=== PATIENT | female | born 1970 | race Native Hawaiian/Other Pacific Islander ===

== ENCOUNTER 2016-08-03 16:09 | Emergency (ER) | payer MEDICAID ==
[~2016-08-03] VITALS: Ht 152.4 cm; Wt 74.0 kg
[~2016-08-03 16:09] MED LIST: DORZ2SOL15 EACH EYE; REST0.05 EACH EYE
[2016-08-03 16:11] VITALS: BP 145/79; PULSE 74; RESP 20; TEMP 98.4; O2SAT 100
[2016-08-03] MEDS ORDERED: IBUP-232 PO (16:35)
[2016-08-03] MEDS ORDERED: PROPARACAINE HCL 0.5% OPHT SOLN 15 ML BTL EACH EYE ONE (17:15)
[2016-08-03] MEDS ORDERED: SODIUM CHLOR 0.9% 1000 ML INJ 1,000 ML IV ONE (17:15)
[2016-08-03] MEDS ORDERED: FLUORESCEIN SOD 1 MG STRIP EACH EYE ONE (17:15)
[2016-08-03] MEDS ORDERED: diphenhydrAMINE HCL 50 MG/ML VIAL IV PUSH ONE (17:15)
[2016-08-03] MEDS ORDERED: PROCHLORPERAZINE INJ 10 MG/2 ML VIAL IV PUSH ONE (17:15)
[2016-08-03 17:48] LABS: AUTOMATED NEUTROPHIL # 3.1 TH/MM3 (1.8-7.7); BASOPHIL % 0.6 % (0.0-2.0); EOSINOPHIL # 0.1 TH/MM3 (0-0.4); HEMATOCRIT 34.3 % (35.0-46.0); LYMPH % 50.1 % (9.0-44.0); LYMPHOCYTE # 3.7 TH/MM3 (1.0-4.8); MEAN CELL VOLUME 69.7 FL (80.0-100.0); MEAN CORPUSCULAR HEMOGLOBIN 22.4 PG (27.0-34.0); MEAN CORPUSCULAR HGB CONC 32.1 % (32.0-36.0); MONO % 6.5 % (0.0-8.0); NEUT % 41.8 % (16.0-70.0); PLATELET COUNT 378 TH/MM3 (150-450); RED BLOOD COUNT 4.92 MIL/MM3 (4.00-5.30); RED CELL DISTRIBUTION WIDTH 20.2 % (11.6-17.2); WHITE BLOOD COUNT 7.5 TH/MM3 (4.0-11.0)
[2016-08-03 17:53] LABS: HEMO FLAGS AUTO DIFF
[2016-08-03 18:10] LABS: BICARBONATE 25.5 MEQ/L (21.0-32.0); POTASSIUM 3.9 MEQ/L (3.5-5.1)
[2016-08-03 18:13] LABS: PLATELET ESTIMATE SMEAR NORMAL (NORMAL); PLATELET MORPHOLOGY NORMAL (NORMAL); SCAN/DIFF AUTO DIFF CONFIRMED
[2016-08-03] MEDS ORDERED: MANNITOL 12.5 GM/50 ML VIAL IV ONE (19:00)
[2016-08-03] MEDS ORDERED: METHAZOLAMIDE 50 MG PO ONE (19:00)
--- NOTE | 2016-08-03 19:08 | RADRPT ---
EXAM DATE/TIME: 08/03/2016 18:31 [place] COMPARISON: No previous studies available for comparison. INDICATIONS : Cephalgia. RADIATION DOSE: 40.30 CTDIvol (mGy) MEDICAL HISTORY : None SURGICAL HISTORY : None. ENCOUNTER: Initial ACUITY: 1 day PAIN SCALE: 5/10 LOCATION: cranial TECHNIQUE: Multiple contiguous axial images were obtained of the head. Using automated exposure control and adj ustment of the mA and/or kV according to patient size, radiation dose was kept as low as reasonably a chievable to obtain optimal diagnostic quality images. FINDINGS: CEREBRUM: The ventricles are normal for age. No evidence of midline shift, mass lesion, hemorrhage or acute in farction. No extra-axial fluid collections are seen. POSTERIOR FOSSA: The cerebellum and brainstem are intact. The 4th ventricle is midline. The cerebellopontine angle i s unremarkable. EXTRACRANIAL: The visualized portion of the orbits is intact. SKULL: The calvaria is intact. No evidence of skull fracture. CONCLUSION: Normal examination for a patient of this age. Jose Mariscal MD on August 03, 2016 at 19:04 Board Certified Radiologist. This report was verified electronically.
[2016-08-03] MEDS ORDERED: METH50TA2 PO (19:29)
--- NOTE | 2016-08-03 19:29 | PD ---
HPI Chief Complaint: Eye Problems/Injury Time Seen by Provider: 16:53 Travel History International Travel<30 days: No Contact w/Intl Traveler<30days: No Traveled to known affect area: No History of Present Illness HPI Patient is a 45-year-old female with history of glaucoma, who comes in complaining of headache with blurry vision and pain to her left eye. She says she was told she had glaucoma 2 years ago and had been using timolol drops until a month ago. She says a month ago her superannuation clerk told her to stop the drops because she does not have glaucoma. She says for the past 10 days she has had blurry vision and burning in that eye as well as a headache. She started taking the timolol drops again because she was concerned her glaucoma was acting up. She denies any head injury. She denies any neck pain. She denies fever or chills. PFSH Past Medical History Medical other: Yes (GLAUCOMA) Migraines: Yes Tetanus Vaccination: < 5 Years Influenza Vaccination: Yes ?: Not LMP: 07/19/16 Past Surgical History Abdominal Surgery: Yes (COLON) Section: Yes Tonsillectomy: Yes Social History Alcohol Use: No Tobacco Use: No Substance Use: No Allergies-Medications (Allergen,Severity, Reaction): Coded Allergies: No Known Allergies (Unverified , 08/03/16) Reported Meds & Prescriptions Reported Meds & Active Scripts Active Methazolamide 50 Mg Tab 50 Mg PO DAILY Take one pill before bedtime and one pill in the morning Reported Ibuprofen 600 Mg Tab 600 Mg PO Q8HR PRN Dorzolamide-Timolol Opth Drops 22.3-6.8 Mg/Ml Soln 1 Drop EACH EYE BID Restasis Opth Drops (Cyclosporine Opth Drops) 0.05% Emul 1 Drop EACH EYE BID Review of Systems Except as stated in HPI: all other systems reviewed are Neg General / Constitutional: No: Fever, Chills Eyes: Positive: Blurred Vision HENT: Positive: Headaches, Lightheadedness Cardiovascular: No: Chest Pain or Discomfort Respiratory: No: Shortness of Breath Gastrointestinal: No: Nausea, Vomiting Musculoskeletal: No: Myalgias, Weakness Skin: No Rash, No Change in Pigmentation Neurologic: Positive: Dizziness, No: Weakness Physical Exam Narrative GENERAL: Awake and alert in no acute distress. SKIN: Focused skin assessment warm/dry. HEAD: Atraumatic. Normocephalic. EYES: Pupils equal and round and reactive. No scleral icterus. No injection or drainage. Extraocular movements intact. ENT: Mucous membranes pink and moist. NECK: Trachea midline. No JVD. CARDIOVASCULAR: Regular rate and rhythm. No murmur appreciated. RESPIRATORY: No accessory muscle use. Clear to auscultation. Breath sounds equal bilaterally. MUSCULOSKELETAL: No obvious deformities. No clubbing. No cyanosis. No edema. NEUROLOGICAL: Awake and alert. No obvious cranial nerve deficits. Motor grossly within normal limits. Normal speech. PSYCHIATRIC: Appropriate mood and affect; insight and judgment normal. Data Data Last Documented VS Vital Signs Date Time Temp Pulse Resp B/P Pulse Ox O2 Delivery O2 Flow Rate FiO2 08/03/16 20:28 78 16 102/78 98 Room Air 08/03/16 16:11 98.4 Orders Complete Blood Count With Diff (08/03/16 17:08) Basic Metabolic Panel (Bmp) (08/03/16 17:08) Iv Access Insert/Monitor (08/03/16 17:08) Ct Brain W/O Iv Contrast(Rout) (08/03/16 ) Ed Urine Pregnancytest Poc (08/03/16 17:08) Fluorescein Strip (Lfaue-T-Vwsgnv A.T.) (08/03/16 17:15) Proparacaine 0.5% Opth Soln (Alcaine 0.5 (08/03/16 17:15) Sodium Chlor 0.9% 1000 Ml Inj (Ns 1000 M (08/03/16 17:15) Prochlorperazine Inj (Compazine Inj) (08/03/16 17:15) Diphenhydramine Inj (Benadryl Inj) (08/03/16 17:15) Methazolamide (Neptazane) (08/03/16 19:00) Mannitol Inj (Osmitrol Inj) (08/03/16 20:15) Labs Laboratory Tests Test 08/03/16 17:00 White Blood Count 7.5 TH/MM3 Red Blood Count 4.92 MIL/MM3 Hemoglobin 11.0 GM/DL Hematocrit 34.3 % Mean Corpuscular Volume 69.7 FL Mean Corpuscular Hemoglobin 22.4 PG Mean Corpuscular Hemoglobin 32.1 % Concent Red Cell Distribution Width 20.2 % Platelet Count 378 TH/MM3 Mean Platelet Volume 7.5 FL Neutrophils (%) (Auto) 41.8 % Lymphocytes (%) (Auto) 50.1 % Monocytes (%) (Auto) 6.5 % Eosinophils (%) (Auto) 1.0 % Basophils (%) (Auto) 0.6 % Neutrophils # (Auto) 3.1 TH/MM3 Lymphocytes # (Auto) 3.7 TH/MM3 Monocytes # (Auto) 0.5 TH/MM3 Eosinophils # (Auto) 0.1 TH/MM3 Basophils # (Auto) 0.0 TH/MM3 CBC Comment AUTO DIFF Differential Comment AUTO DIFF CONFIRMED Platelet Estimate NORMAL Platelet Morphology Comment NORMAL Sodium Level 139 MEQ/L Potassium Level 3.9 MEQ/L Chloride Level 104 MEQ/L Carbon Dioxide Level 25.5 MEQ/L Anion Gap 10 MEQ/L Blood Urea Nitrogen 11 MG/DL Creatinine 0.82 MG/DL Estimat Glomerular Filtration 76 ML/MIN Rate Random Glucose 83 MG/DL Calcium Level 8.7 MG/DL MDM Medical Decision Making Medical Screen Exam Complete: Yes Emergency Medical Condition: Yes Medical Record Reviewed: Yes Differential Diagnosis Migraine versus corneal abrasion versus glaucoma Narrative Course Patient is a 45-year-old female with a history of glaucoma who comes in complaining of blurred vision, pain in her eyes and a headache. She says it is been going on for the past 10 days. Exam shows pupils equal and reactive, left eye visual acuity is 20/30, right eye is 20/25. Kyle-Pen used to test the pressure in both eyes, it reads 90 in her left eye, 89 on repeat. Right eye has a pressure 14. I spoke with Dr. Faust of ophthalmology who suggests 1 g/kg of mannitol and Neptazane 50 mg, once now, once at bedtime and once in the morning. Patient given these medications. Given prescription for Neptazane. Advised to follow- up with Dr. Faust tomorrow morning. Patient understands the importance of follow -up. Advised to return to the ED as needed for any worsening symptoms. Labs and CT head are all within normal limits. Diagnosis Primary Impression: Absolute glaucoma of left eye Patient Instructions: General Instructions, Glaucoma (ED) Additional Instructions: Take one dose of Naptazine tonight at bedtime and one tomorrow morning. Follow up tomorrow morning with Dr. Recio [address] [place] [address] [phone]. Return to the ED as needed for any worsening symptoms. Scripts Methazolamide 50 Mg Tab50 Mg PO DAILY #2 TAB Ref 0 Take one pill before bedtime and one pill in the morning Prov:Carol Grajeda MD 08/03/16 Disposition: 01 DISCHARGE HOME Condition: Stable Carol Grajeda MD August 03, 2016 19:29
[2016-08-03] MEDS ORDERED: MANNITOL IV ONE (20:15)
[2016-08-03 20:28] VITALS: BP 102/78; PULSE 78; RESP 16; O2SAT 98
== END 2016-08-03 22:19 | disposition home or self-care (01) ==
LOC: NEPC 16:09
DX: H44.512 Absolute glaucoma, left eye (principal)
CPT/HCPCS: 70450; 80048; 84703; 85025; 96361; 96374; 96375; 99284; J0780; J1200; J7030

== ENCOUNTER 2017-05-07 11:58 | Emergency (ER) | payer MEDICAID ==
[~2017-05-07] VITALS: Ht 157.5 cm; Wt 75.0 kg
[~2017-05-07 11:58] MED LIST changes: +IBUP-232 PO; +METH50TA2 PO
[2017-05-07 12:02] VITALS: BP 147/86; PULSE 74; RESP 14; TEMP 98.9; O2SAT 100
[2017-05-07 12:42] VITALS: O2SAT 100
[2017-05-07] MEDS ORDERED: ATOM40 PO (12:48)
[2017-05-07] MEDS ORDERED: FERR325T72 PO (12:48)
[2017-05-07] MEDS ORDERED: ALPR0.25 PO (12:48)
[2017-05-07] MEDS ORDERED: SUMA100T2 PO (12:48)
[2017-05-07] MEDS ORDERED: ATOR20TA15 PO (12:48)
[2017-05-07] MEDS ORDERED: BUTATAB6 PO (12:48)
[2017-05-07] MEDS ORDERED: TOPI200T7 PO (12:48)
[2017-05-07] MEDS ORDERED: CITA20TA4 PO (12:48)
[2017-05-07 12:58] LABS: HEMATOCRIT 39.6 % (35.0-46.0); HEMOGLOBIN 13.1 GM/DL (11.6-15.3); MEAN CELL VOLUME 77.7 FL (80.0-100.0); MEAN CORPUSCULAR HEMOGLOBIN 25.7 PG (27.0-34.0); MEAN CORPUSCULAR HGB CONC 33.1 % (32.0-36.0); RED CELL DISTRIBUTION WIDTH 17.2 % (11.6-17.2); WHITE BLOOD COUNT 5.7 TH/MM3 (4.0-11.0)
[2017-05-07 12:59] LABS: AUTOMATED NEUTROPHIL # 3.2 TH/MM3 (1.8-7.7); BASOPHIL % 0.3 % (0.0-2.0); EOSINOPHIL % 0.3 % (0.0-4.0); LYMPH % 37.3 % (9.0-44.0); LYMPHOCYTE # 2.1 TH/MM3 (1.0-4.8); MEAN PLATELET VOLUME 7.5 FL (7.0-11.0); MONO % 5.5 % (0.0-8.0); MONOCYTE # 0.3 TH/MM3 (0-0.9); NEUT % 56.6 % (16.0-70.0); PLATELET COUNT 283 TH/MM3 (150-450)
[2017-05-07] MEDS ORDERED: PANTOPRAZOLE SODIUM 40 MG VIAL IV PUSH ONE (13:00)
[2017-05-07] MEDS ORDERED: SODIUM CHLOR 0.9% 1000 ML INJ 1,000 ML IV SCH (13:00)
[2017-05-07] MEDS ORDERED: ONDANSETRON HCL 4 MG/2 ML VIAL IV PUSH ONE (13:00)
[2017-05-07 13:08] LABS: BILIRUBIN, URINE NEG (NEG); BLOOD, URINE MOD (NEG); GLUCOSE,URINE NEG (NEG); KETONE, URINE NEG (NEG); MUCUS URINE FEW /lpf (OCC); NITRITE,URINE NEG (NEG); PH, URINE 6.5 (5.0-8.5); SQUAMOUS EPITHELIAL CELL URINE 1 /hpf (0-5); URINE COLOR YELLOW (YELLW/STRAW); URINE LEUKOCYTE ESTERASE NEG (NEG)
[2017-05-07 13:17] LABS: ALBUMIN 4.3 GM/DL (3.4-5.0); ALT (GPT) 27 U/L (10-53); AST (GOT) 17 U/L (15-37); BICARBONATE 24.6 MEQ/L (21.0-32.0); BLOOD UREA NITROGEN 6 MG/DL (7-18); CALCIUM 8.8 MG/DL (8.5-10.1); CHLORIDE 108 MEQ/L (98-107); GLUCOSE,RANDOM 88 MG/DL (74-106); SODIUM (NA) 138 MEQ/L (136-145)
[2017-05-07 13:20] LABS: ALKALINE PHOSPHATASE 67 U/L (45-117); GLOMERULAR FILTRATION RATE 108 ML/MIN (>89); TOTAL BILIRUBIN ADULT 0.6 MG/DL (0.2-1.0); TOTAL PROTEIN 8.1 GM/DL (6.4-8.2)
--- NOTE | 2017-05-07 13:28 | PD ---
HPI Chief Complaint: GI Complaint Time Seen by Provider: 13:07 Travel History International Travel<30 days: No Contact w/Intl Traveler<30days: No Traveled to known affect area: No History of Present Illness HPI This is a 46-year-old female who came here for abdominal pain nausea and vomiting that started 2 days ago when she had antibiotics and pain killers. She had 1 of her tooth removed 2 days ago and she was started on antibiotics and painkillers that she does not know the name of it. She states that her symptoms worse when she takes the antibiotics, she gets nausea and she vomits, vomitus is nonbilious nonbloody, she denies fever chills or night sweats, she complain of burning sensation every time she takes the pain killer. She denies UTI-like symptoms denies any vaginal discharge no cough or chest pain no shortness of breath. She is not using alcohol or any drugs. I was able to locate the medication that she was taking, she was on amoxicillin 500 as well as [place] for pain. Patient has improved with the IV Protonix here in the ER and her symptoms are consistent with gastritis. [facility] Past Medical History Migraines: Yes ?: Unknown LMP: 04/18/17 Past Surgical History Abdominal Surgery: Yes (COLON) Section: Yes Tonsillectomy: Yes Social History Alcohol Use: No Tobacco Use: No Substance Use: No Allergies-Medications (Allergen,Severity, Reaction): Coded Allergies: No Known Allergies (Unverified , 08/03/16) Reported Meds & Prescriptions Reported Meds & Active Scripts Active Zofran (Ondansetron HCl) 4 Mg Tab 4 Mg PO Q12HR PRN 5 Days EC-Naprosyn (Naproxen) 500 Mg Tabdr 500 Mg PO BID Zithromax Z-Yunier (Azithromycin) 250 Mg Dspk 250 Mg PO DIRECTED 500 MG (2 tabs) day 1, then 1 tab days 2-5. Protonix (Pantoprazole Sodium) 40 Mg Tab 40 Mg PO DAILY Reported Topiramate 200 Mg Tab 100 Mg PO HS Sumatriptan (Sumatriptan Succinate) 100 Mg Tab 100 Mg PO ONCE PRN If a satisfactory response has not been obtained at 2 hours, a second dose may be administered Ferrous Gluconate 324 Mg (37.5 Mg Iron) Tab 325 Mg PO DAILY Citalopram (Citalopram Hydrobromide) 20 Mg Tab 20 Mg PO DAILY Iqcpabghoj-Sxpmzwoxacmcr-Jpobqmvb 50-325-40 Mg Tab 1 Tab PO DAILY PRN Do not exceed 6 tablets/day. Atorvastatin (Atorvastatin Calcium) 20 Mg Tab 20 Mg PO HS Strattera (Atomoxetine HCl) 40 Mg Cap 40 Mg PO DAILY Alprazolam 0.25 Mg Tab 0.25 Mg PO DAILY PRN Review of Systems General / Constitutional: No: Fever, Weight Loss HENT: Positive: Headaches Cardiovascular: Positive: Palpitations Gastrointestinal: Positive: Nausea, Vomiting, Abdominal Pain Physical Exam Narrative GENERAL: No acute distress. Mouth: 1st molar removed, no signs of infection or swelling. SKIN: Focused skin assessment warm/dry. HEAD: Atraumatic. Normocephalic. EYES: Pupils equal and round. No scleral icterus. No injection or drainage. ENT: No nasal bleeding or discharge. Mucous membranes pink and moist. NECK: Trachea midline. CARDIOVASCULAR: Regular rate and rhythm. No murmur appreciated. RESPIRATORY: No accessory muscle use. Clear to auscultation. Breath sounds equal bilaterally. GASTROINTESTINAL: Mild epigastric pain to palpation, abdomen soft, nondistended. Hepatic and splenic margins not palpable. MUSCULOSKELETAL: No obvious deformities. No clubbing. No cyanosis. No edema. NEUROLOGICAL: Awake and alert. No obvious cranial nerve deficits. Motor grossly within normal limits. Normal speech. PSYCHIATRIC: Appropriate mood and affect; insight and judgment normal. Data Data Last Documented VS Vital Signs Date Time Temp Pulse Resp B/P (MAP) Pulse Ox O2 Delivery O2 Flow Rate FiO2 05/07/17 14:29 05/07/17 12:42 100 Room Air 05/07/17 12:02 98.9 74 14 Orders Orders Complete Blood Count With Diff (05/07/17 12:12) Comprehensive Metabolic Panel (05/07/17 12:12) Urinalysis - C+S If Indicated (05/07/17 12:12) Ed Urine Pregnancytest Poc (05/07/17 12:12) Iv Access Insert/Monitor (05/07/17 12:12) Oxygen Administration (05/07/17 12:12) Oximetry (05/07/17 12:12) Lipase (05/07/17 12:12) Pantoprazole Inj (Protonix Inj) (05/07/17 13:00) Sodium Chlor 0.9% 1000 Ml Inj (Ns 1000 M (05/07/17 13:00) Ondansetron Inj (Zofran Inj) (05/07/17 13:00) Ed Discharge Order (05/07/17 14:14) Labs Laboratory Tests Test 05/07/17 12:25 05/07/17 12:35 Urine Color YELLOW Urine Turbidity CLEAR Urine pH 6.5 Urine Specific [place] 1.009 Urine Protein NEG mg/dL Urine Glucose (UA) NEG mg/dL Urine Ketones NEG mg/dL Urine Occult Blood MOD Urine Nitrite NEG Urine Bilirubin NEG Urine Urobilinogen LESS THAN 2.0 MG/DL Urine Leukocyte Esterase NEG Urine RBC 5 /hpf Urine WBC 2 /hpf Urine Squamous Epithelial Cells 1 /hpf Urine Mucus FEW /lpf Microscopic Urinalysis Comment CULT NOT INDICATED White Blood Count 5.7 TH/MM3 Red Blood Count 5.10 MIL/MM3 Hemoglobin 13.1 GM/DL Hematocrit 39.6 % Mean Corpuscular Volume 77.7 FL Mean Corpuscular Hemoglobin 25.7 PG Mean Corpuscular Hemoglobin Concent 33.1 % Red Cell Distribution Width 17.2 % Platelet Count 283 TH/MM3 Mean Platelet Volume 7.5 FL Neutrophils (%) (Auto) 56.6 % Lymphocytes (%) (Auto) 37.3 % Monocytes (%) (Auto) 5.5 % Eosinophils (%) (Auto) 0.3 % Basophils (%) (Auto) 0.3 % Neutrophils # (Auto) 3.2 TH/MM3 Lymphocytes # (Auto) 2.1 TH/MM3 Monocytes # (Auto) 0.3 TH/MM3 Eosinophils # (Auto) 0.0 TH/MM3 Basophils # (Auto) 0.0 TH/MM3 CBC Comment DIFF FINAL Differential Comment Blood Urea Nitrogen 6 MG/DL Creatinine 0.60 MG/DL Random Glucose 88 MG/DL Total Protein 8.1 GM/DL Albumin 4.3 GM/DL Calcium Level 8.8 MG/DL Alkaline Phosphatase 67 U/L Aspartate Amino Transf (AST/SGOT) 17 U/L Alanine Aminotransferase (ALT/SGPT) 27 U/L Total Bilirubin 0.6 MG/DL Sodium Level 138 MEQ/L Potassium Level 3.6 MEQ/L Chloride Level 108 MEQ/L Carbon Dioxide Level 24.6 MEQ/L Anion Gap 5 MEQ/L Estimat Glomerular Filtration Rate 108 ML/MIN Lipase 116 U/L MDM Medical Decision Making Medical Screen Exam Complete: Yes Emergency Medical Condition: Yes Medical Record Reviewed: Yes Interpretation(s) Laboratory Tests Test 05/07/17 12:25 05/07/17 12:35 Urine Color YELLOW (YELLW/STRAW) Urine Turbidity CLEAR (CLEAR) Urine pH 6.5 (5.0-8.5) Urine Specific [place] 1.009 (1.002-1.035) Urine Protein NEG mg/dL (NEG-TRACE) Urine Glucose (UA) NEG mg/dL (NEG) Urine Ketones NEG mg/dL (NEG) Urine Occult Blood MOD (NEG) Urine Nitrite NEG (NEG) Urine Bilirubin NEG (NEG) Urine Urobilinogen LESS THAN 2.0 MG/DL (LESS Urine Leukocyte Esterase NEG (NEG) Urine RBC 5 /hpf (0-3) Urine WBC 2 /hpf (0-5) Urine Squamous Epithelial Cells 1 /hpf (0-5) Urine Mucus FEW /lpf (OCC) Microscopic Urinalysis Comment CULT NOT INDICATED White Blood Count 5.7 TH/MM3 (4.0-11.0) Red Blood Count 5.10 MIL/MM3 (4.00-5.30) Hemoglobin 13.1 GM/DL (11.6-15.3) Hematocrit 39.6 % (35.0-46.0) Mean Corpuscular Volume 77.7 FL (80.0-100.0) Mean Corpuscular Hemoglobin 25.7 PG (27.0-34.0) Mean Corpuscular Hemoglobin Concent 33.1 % (32.0-36.0) Red Cell Distribution Width 17.2 % (11.6-17.2) Platelet Count 283 TH/MM3 (150-450) Mean Platelet Volume 7.5 FL (7.0-11.0) Neutrophils (%) (Auto) 56.6 % (16.0-70.0) Lymphocytes (%) (Auto) 37.3 % (9.0-44.0) Monocytes (%) (Auto) 5.5 % (0.0-8.0) Eosinophils (%) (Auto) 0.3 % (0.0-4.0) Basophils (%) (Auto) 0.3 % (0.0-2.0) Neutrophils # (Auto) 3.2 TH/MM3 (1.8-7.7) Lymphocytes # (Auto) 2.1 TH/MM3 (1.0-4.8) Monocytes # (Auto) 0.3 TH/MM3 (0-0.9) Eosinophils # (Auto) 0.0 TH/MM3 (0-0.4) Basophils # (Auto) 0.0 TH/MM3 (0-0.2) CBC Comment DIFF FINAL Differential Comment Blood Urea Nitrogen 6 MG/DL (7-18) Creatinine 0.60 MG/DL (0.50-1.00) Random Glucose 88 MG/DL (74-106) Total Protein 8.1 GM/DL (6.4-8.2) Albumin 4.3 GM/DL (3.4-5.0) Calcium Level 8.8 MG/DL (8.5-10.1) Alkaline Phosphatase 67 U/L (45-117) Aspartate Amino Transf (AST/SGOT) 17 U/L (15-37) Alanine Aminotransferase (ALT/SGPT) 27 U/L (10-53) Total Bilirubin 0.6 MG/DL (0.2-1.0) Sodium Level 138 MEQ/L (136-145) Potassium Level 3.6 MEQ/L (3.5-5.1) Chloride Level 108 MEQ/L (98-107) Carbon Dioxide Level 24.6 MEQ/L (21.0-32.0) Anion Gap 5 MEQ/L (5-15) Estimat Glomerular Filtration Rate 108 ML/MIN (>89) Lipase 116 U/L (73-393) Differential Diagnosis Gastritis, pancreatitis, gastroenteritis. Narrative Course This is a 46-year-old female who came here for a burning sensation, vomiting nausea that happens after he had taken her antibiotics and [place] after a tooth procedure, patient improved after IV push Protonix and IV fluids, her labs were within normal limits, her symptoms consistent with gastritis related to medications. I explained to the patient we will change her antibiotics to Z- Yunier and will start Naprosyn enteric-coated and she is to follow-up with her primary care. Patient understands the plan and agrees to follow-up. Diagnosis Primary Impression: Gastritis Qualified Codes: K29.00 - Acute gastritis without bleeding Patient Instructions: General Instructions Scripts Ondansetron (Zofran) 4 Mg Tab 4 MG PO Q12HR Y for NAUSEA OR VOMITING for 5 Days, TAB 10 Refills Prov: Mekhaeil,Jonathan Arnist MD 05/07/[address] (EC-Naprosyn) 500 Mg Tabdr 500 MG PO BID, #20 TAB 0 Refills Prov: Jonathan Ash MD 05/07/17 Azithromycin (Zithromax Z-Yunier) 250 Mg Dspk 250 MG PO DIRECTED for Infection, #1 DSPK 0 Refills 500 MG (2 tabs) day 1, then 1 tab days 2-5. Prov: Jonathan Ash MD 05/07/17 Pantoprazole (Protonix) 40 Mg Tab 40 MG PO DAILY for Reflux, #30 TAB 0 Refills Prov: Jonathan Ash MD 05/07/17 Disposition: 01 DISCHARGE HOME Condition: Stable Jonathan Ash MD May 07, 2017 13:28
[2017-05-07] MEDS ORDERED: ZOFR4TAB PO (14:14)
[2017-05-07] MEDS ORDERED: ZITHTAB PO (14:14)
[2017-05-07] MEDS ORDERED: PROT40TA PO (14:14)
[2017-05-07] MEDS ORDERED: NAPR-810 PO (14:14)
== END 2017-05-07 14:51 | disposition home or self-care (01) ==
LOC: NEPD 11:58
DX: K29.00 Acute gastritis without bleeding (principal)
CPT/HCPCS: 80053; 81001; 83690; 84703; 85025; 96374; 96375; 99284; C9113; J2405; J7030

== ENCOUNTER 2017-07-28 12:23 | Emergency (ER) | payer MEDICAID ==
[~2017-07-28] VITALS: Ht 152.4 cm; Wt 71.9 kg
[~2017-07-28 12:23] MED LIST changes: +ALPR0.25 PO; +ATOM40 PO; +ATOR20TA15 PO; +BUTATAB6 PO; +CITA20TA4 PO; -DORZ2SOL15 EACH EYE; +FERR325T72 PO; -IBUP-232 PO; -METH50TA2 PO; +NAPR-810 PO; +PROT40TA PO; -REST0.05 EACH EYE; +SUMA100T2 PO; +TOPI200T7 PO; +ZITHTAB PO; +ZOFR4TAB PO
[2017-07-28 12:27] VITALS: BP 121/58; PULSE 78; RESP 18; TEMP 98.1; O2SAT 99
--- NOTE | 2017-07-28 13:21 | PD ---
HPI Chief Complaint: Director Account Management Problem/Complaint Time Seen by Provider: 12:40 Travel History International Travel<30 days: No Contact w/Intl Traveler<30days: No Traveled to known affect area: No History of Present Illness HPI Patient is a 46 year old female who comes in after one day of vaginal bleeding. She says she had an upper endoscopy yesterday and then started to have the vaginal bleeding. She says it was definitely vaginal, not coming from her rectum. She says she does not get regular periods, so she does not know if she is due for her menstrual period. She says she has also had breast tenderness and lower abdominal cramping. She denies nausea or vomiting. She denies rectal bleeding of vomiting blood. Severity is mild. PFSH Past Medical History High Cholesterol: Yes Diminished Hearing: No GERD: Yes Migraines: Yes Influenza Vaccination: No ?: Not Past Surgical History Abdominal Surgery: Yes (COLON) Section: Yes Tonsillectomy: Yes Social History Alcohol Use: No Tobacco Use: No Substance Use: No Allergies-Medications (Allergen,Severity, Reaction): Coded Allergies: amoxicillin (Verified Allergy, Mild, Nausea/Vomiting, 07/28/17) No Known Allergies (Unverified Adverse Reaction, Unknown, 07/28/17) Reported Meds & Prescriptions Reported Meds & Active Scripts Active Zofran (Ondansetron HCl) 4 Mg Tab 4 Mg PO Q12HR PRN 5 Days EC-Naprosyn (Naproxen) 500 Mg Tabdr 500 Mg PO BID Protonix (Pantoprazole Sodium) 40 Mg Tab 40 Mg PO DAILY Reported Topiramate 200 Mg Tab 100 Mg PO HS Sumatriptan (Sumatriptan Succinate) 100 Mg Tab 100 Mg PO ONCE PRN If a satisfactory response has not been obtained at 2 hours, a second dose may be administered Citalopram (Citalopram Hydrobromide) 20 Mg Tab 20 Mg PO DAILY Dzllpeopiv-Ddkxwufouvgnz-Decxnlat 50-325-40 Mg Tab 1 Tab PO DAILY PRN Do not exceed 6 tablets/day. Atorvastatin (Atorvastatin Calcium) 20 Mg Tab 20 Mg PO HS Strattera (Atomoxetine HCl) 40 Mg Cap 40 Mg PO DAILY Alprazolam 0.25 Mg Tab 0.25 Mg PO DAILY PRN Review of Systems Except as stated in HPI: all other systems reviewed are Neg General / Constitutional: No: Fever, Chills HENT: No: Headaches Cardiovascular: No: Chest Pain or Discomfort Respiratory: No: Shortness of Breath Gastrointestinal: Positive: Abdominal Pain Genitourinary: Positive: Vaginal Bleeding Skin: No Rash, No Itching Neurologic: No: Weakness, Dizziness Physical Exam Narrative GENERAL: Awake and alert, in no acute distress. SKIN: Focused skin assessment warm/dry. HEAD: Atraumatic. Normocephalic. EYES: Pupils equal and round. No scleral icterus. No conjunctival pallor. ENT: Mucous membranes pink and moist. NECK: Trachea midline. No JVD. CARDIOVASCULAR: Regular rate and rhythm. No murmur appreciated. RESPIRATORY: No accessory muscle use. Clear to auscultation. Breath sounds equal bilaterally. GASTROINTESTINAL: Abdomen soft, non-tender, nondistended. : Exam performed in the presence of the nurse. IUD strings seen. Small amount of brownish blood present in the vaginal vault, no active bleeding. MUSCULOSKELETAL: No obvious deformities. No clubbing. No cyanosis. No edema. NEUROLOGICAL: Awake and alert. No obvious cranial nerve deficits. Motor grossly within normal limits. Normal speech. PSYCHIATRIC: Appropriate mood and affect; insight and judgment normal. Data Data Last Documented VS Vital Signs Date Time Temp Pulse Resp B/P (MAP) Pulse Ox O2 Delivery O2 Flow Rate FiO2 07/28/17 12:27 98.1 78 18 121/58 (79) 99 Orders Orders Complete Blood Count With Diff (07/28/17 12:46) Ed Urine Pregnancytest Poc (07/28/17 12:46) Labs Laboratory Tests Test 07/28/17 13:15 White Blood Count 5.6 TH/MM3 Red Blood Count 4.62 MIL/MM3 Hemoglobin 12.5 GM/DL Hematocrit 35.5 % Mean Corpuscular Volume 76.7 FL Mean Corpuscular Hemoglobin 27.0 PG Mean Corpuscular Hemoglobin Concent 35.2 % Red Cell Distribution Width 15.3 % Platelet Count 318 TH/MM3 Mean Platelet Volume 8.2 FL CBC Comment AUTO DIFF Differential Total Cells Counted 100 Neutrophils % (Manual) 39 % Lymphocytes % 55 % Monocytes % 6 % Neutrophils # (Manual) 2.2 TH/MM3 Differential Comment FINAL DIFF MANUAL Platelet Estimate NORMAL Platelet Morphology Comment NORMAL Target Cells 1+ Ovalocytes 1+ Hematology Comments MDM Medical Decision Making Medical Screen Exam Complete: Yes Emergency Medical Condition: Yes Medical Record Reviewed: Yes Differential Diagnosis menstrual period vs dysfunctional uterine bleeding vs anemia Narrative Course Patient is a 46 year old female who comes in complaining of vaginal bleeding. She also has symptoms of abdominal cramping and sore breasts, suggesting she is having her menstrual period. Exam shows no acute abnormalities. Urine test is negative. Hgb is 12.5. Patient advised to follow up with gynecology. Advised to return to the ED as needed for any worsening symptoms/bleeding. Diagnosis Primary Impression: Heavy menstrual period Qualified Codes: N92.1 - Excessive and frequent menstruation with irregular cycle Patient Instructions: Dysmenorrhea (ED), General Instructions Additional Instructions: Follow up with your sluice tender. Return to the ED as needed for any worsening symptoms. Disposition: 01 DISCHARGE HOME Condition: Stable Carol Grajeda MD July 28, 2017 13:21
[2017-07-28 13:28] LABS: HEMATOCRIT 35.5 % (35.0-46.0); HEMOGLOBIN 12.5 GM/DL (11.6-15.3); MEAN CELL VOLUME 76.7 FL (80.0-100.0); MEAN CORPUSCULAR HGB CONC 35.2 % (32.0-36.0); MEAN PLATELET VOLUME 8.2 FL (7.0-11.0); PLATELET COUNT 318 TH/MM3 (150-450); RED BLOOD COUNT 4.62 MIL/MM3 (4.00-5.30); RED CELL DISTRIBUTION WIDTH 15.3 % (11.6-17.2); WHITE BLOOD COUNT 5.6 TH/MM3 (4.0-11.0)
[2017-07-28 14:00] LABS: LYMPHOCYTES 55 % (9-44); MONOCYTES 6 % (0-8); NEUTROPHIL # MANUAL DIFF 2.2 TH/MM3 (1.8-7.7); OVALOCYTES 1+ (NORMAL); POLYS (SEG NEUTROPHILS) 39 % (16-70); TARGET CELLS 1+ (NORMAL)
== END 2017-07-28 14:18 | disposition home or self-care (01) ==
LOC: PHED 12:23
DX: N92.1 Excessive and frequent menstruation with irregular cycle (principal); E78.00 Pure hypercholesterolemia, unspecified; K21.9 Gastro-esophageal reflux disease without esophagitis; Z79.899 Other long term (current) drug therapy; Z88.0 Allergy status to penicillin
CPT/HCPCS: 84703; 85007; 85027; 99283